=== PATIENT | female | born 1940 | race Caucasian/White ===

== ENCOUNTER → 2016-06-19 | Outpatient (CLI) | payer OTHER ==
[~2016-06-19] MED LIST: CITA40TA4 PO; CLOP1TAB15 PO; KETO10TA OPR; LISI40TA PO; PRAV20TA PO; PRED1SUS3 OPR
--- NOTE | 2016-06-19 10:35 | DIAGNOSTIC IMAGING REPORT ---
ULTRASOUND OF THE CAROTID ARTERIES CLINICAL HISTORY: I65.29 Carotid artery [id number] COMPARISON STUDY: None. TECHNIQUE: Real-time, grayscale, and color Doppler sonography of the carotid arteries was performed. Imaging reviewed in the transverse and longitudinal planes. NASCET criteria was utilized for stenosis calcification. FINDINGS: There is extensive atherosclerotic plaque present bilaterally. The peak systolic velocity within the right internal carotid artery is 220 cm/sec. The systolic velocity ratio of right internal to common carotid artery is 4.4. The peak systolic velocity within the left internal carotid artery is 550 cm/sec. The systolic velocity ratio left internal to common carotid artery is 7.8. Antegrade flow is seen in the vertebral arteries. The external carotid arteries are patent. Blood pressure in the right arm measured 145 mm/Hg. Blood pressure in the left arm measured 135 mm/Hg. IMPRESSION: High grade (greater than 70%) stenosis of both internal carotid arteries Electronically signed by: Samy Meyer M.D. 06/19/2016 10:34 AM
== END | disposition home or self-care (01) ==
LOC: C.ULTR 09:34
PROVIDERS: ATTEND Surgery
DX: I65.23 Occlusion and stenosis of bilateral carotid arteries (principal)

== ENCOUNTER → 2017-03-25 | Outpatient (CLI) | payer OTHER ==
[2017-03-25 14:53] LABS: BASO % 0.4 %; BASO ABS # 0.04 K/uL (0-0.2); COMPLETE YES; EOS % 2.3 %; HEMATOCRIT 38.4 % (37-47); IG% 0.3 %; LYMPH % 34.4 %; MEAN CELL VOLUME 93.9 fL (80-100); MEAN CORPUSCULAR HEMOGLOBIN 32.3 pg (25-34); MEAN CORPUSCULAR HGB CONC 34.4 g/dl (32-36); MEAN PLATELET VOLUME 9.8 fL (7.4-10.4); MONO % 8.4 %; NEUT % 54.2 %; PLATELET COUNT 319 K/uL (130-400); RED BLOOD COUNT 4.09 M/uL (4.2-5.4)
[2017-03-25 15:38] LABS: CHOLESTEROL/HDL RATIO 4.5; THYROID STIMULATING HORMONE 1.17 uIu/ml (0.300-4.500)
== END | disposition home or self-care (01) ==
LOC: C.LAB1850 13:39
PROVIDERS: ATTEND General Practice
DX: D51.0 Vitamin B12 deficiency anemia due to intrinsic factor deficiency (principal); E78.5 Hyperlipidemia, unspecified; E03.9 Hypothyroidism, unspecified

== ENCOUNTER → 2017-10-31 | Outpatient (CLI) | payer OTHER | END | disposition home or self-care (01) | LOC: C.MAMM 11:15 | PROVIDERS: ATTEND Internal Medicine | DX: Z00.00 Encounter for general adult medical examination without abnormal findings (principal); M85.88 Other specified disorders of bone density and structure, other site; M85.852 Other specified disorders of bone density and structure, left thigh; M85.851 Other specified disorders of bone density and structure, right thigh; Z78.0 Asymptomatic menopausal state ==

== ENCOUNTER 2023-03-23 18:18 | Observation (INO) ==
[2023-03-23] MEDS ORDERED: MECLIZINE HCL 25 MG TAB PO STA (18:55)
[2023-03-23] MEDS ORDERED: SODIUM CHLORIDE 0.9% 1,000 ML IV SCH (19:00)
--- NOTE | 2023-03-23 19:04 | Emergency Department Note ---
Impression & Plan Vertigo ED Provider Note NAME: ANUJ GUTIERRES AGE: 82 SEX: F : 1940 ARRIVES VIA: Ambulance INFORMANT: Patient, ED PROVIDER(S): Robbin Faith MD CHIEF COMPLAINT: dizziness HPI: This is a 82-year-old female with history of TIA, carotid artery stenosis presenting for dizziness per patient states that at 1 PM she began noticing extreme vertigo type sensation where she felt she was spinning. She states that this was the point where she was unable to sit up due to the symptoms. She has had nausea without vomiting. No weakness in any of her extremities. No trouble with swallowing or speech. She notes that she has not tried to walk at this time. ROS: See above HPI for pertinent positives & negatives. A total of 10 systems reviewed and were otherwise negative. PAST MEDICAL HISTORY: See Below PAST SURGICAL HISTORY: See Below FAMILY HISTORY: See Below SOCIAL HISTORY: See Below HOME MEDICATIONS: See Below ALLERGIES: See Below VITALS: See Below PHYSICAL EXAMINATION: General: resting comfortably in no acute distress Head: Normocephalic and atraumatic Eyes: Normal inspection, extraocular muscles intact, no conjunctival pallor Ear, nose, throat: Normal external exam Neck: Normal range of motion Respiratory: Patient is in no respiratory distress, lungs clear to auscultation bilaterally Cardiovascular: RRR without murmur appreciated GI: soft, nontender, no guarding or rebound Extremities: pulses intact with good cap refills, no LE pitting edema or calf tenderness Neuro: The patient awake and alert, appropriately conversive, cranial nerves II through XII intact, no dysmetria, symmetric facies Skin: Warm, dry, and intact MEDICAL DECISION MAKING: This is a 82-year-old female with history of TIA and carotid artery stenosis presenting for dizziness. Concern for central versus peripheral process patient's current vertigo type sensation. We will get CT of the head. We will get basic blood work and attempt symptomatic relief with meclizine for Patient's blood work is reviewed and is reassuring at this time, no significant abnormalities. Patient CT imaging of the head reveals no acute process as well. Patient evaluated states that she does feel better however upon Orthodox and her observe her gait she became extremely dizzy, was unable to get out of bed or walk. Patient will require admission for further TIA/stroke rule out as well as inability to walk. Triage Nursing notes reviewed. Prior medical records reviewed Vital Signs: reviewed and remarkable for no significant abnormalities Differential diagnosis: As above ER treatment provided: See below Diagnostics interpreted by me: ECG: None Cardiac Monitoring: An order was placed for continuous cardiac monitoring. The monitor shows a rate of 65 with sinus rhythm. Laboratory studies: As stated above and show below. Imaging studies: See below. Consultation(s): None Past Med/Surg History Medical History Acid reflux Carotid stenosis s/p right and left CEA 2020 and 2021 Depression Former smoker History of central retinal artery occlusion (2020) History of TIA (transient ischemic attack) (2016) Hyperlipidemia Hypertension Obstructive sleep apnea CPAP treatment Osteoarthritis of knee Osteopenia Surgical History H/O wisdom tooth extraction around the age of 13 History of cataract surgery B/L 2019 History of left-sided carotid endarterectomy (07/2021) History of right-sided carotid endarterectomy (04/2021) Hx of neck surgery 04/27/2021 Family History Mother Myocardial infarction Sister Breast cancer Father Prostate cancer Denies family history of Ovarian cancer Colorectal cancer Social History Smoking Status: Current every day smoker Tobacco Type: Cigarettes Age Started Using Tobacco: 19; Age Quit Using Tobacco: 80; packs per day: 0.25; Cigarettes Per Day: 5-6; Second Hand Exposure: No; Do You Dip or Chew Tobacco: No; Tobacco Cessation Education Requested by Patient: No Hx Alcohol Use: No Hx Substance Use: No Preferred Language: Serbian Communication Ability: Effective Visual Impairment: No Limitations Hearing Ability: Normal Rug Hooker Required: No Beliefs That Will Affect Care: None marital status: / Current Living Situation: Alone Current Living Situation Comment: [facility], [place]. current occupational status: retired current occupation: used to work as a receptionist secretary Other Information That Helps Us Care for You: No Feels Safe at Home: Yes Safety Concerns: Feels Safe At This Time Childhood Exposure to Second-Hand Smoke: No Diet: regular caffeine: Yes Dental Care, Regularly: No Physical Activity Frequency: 3-4 Times per Week Seatbelt Use: always Sunscreen Use: No Assistive Devices: Cane, Denture - Upper, Denture - Lower, Glasses, Hospital Bed and Walker Allergies Allergies Allergy/AdvReac Type Severity Reaction Status Date / Time pollen extracts Allergy Unknown . Verified 03/23/23 19:11 Home Meds Home Medications Medication Instructions Recorded Confirmed fluticasone propionate 50 2 sprays intranasal DAILY PRN 03/06/19 03/23/23 mcg/actuation nasal Allergic Symptoms spray,suspension calcium carbonate 600 mg-vitamin 1 tab PO DAILY 04/19/19 03/23/23 D3 20 mcg (800 unit) chewable tablet (Caltrate 600 plus D) diphenhydramine 25 1 tab PO HS 03/08/21 03/23/23 mg-acetaminophen 500 mg tablet (Tylenol PM Extra Strength) cetirizine 10 mg tablet (Zyrtec) 10 mg PO DAILY PRN Allergic 02/27/22 03/23/23 Symptoms cholecalciferol (vitamin D3) 25 25 mcg PO DAILY 08/16/22 03/23/23 mcg (1,000 unit) capsule eflornithine 13.9 % topical cream 1 applic topical BID PRN Skin 03/23/23 03/23/23 (Vaniqa) Irritation Previous Rx's Medication Instructions Recorded citalopram 40 mg tablet 40 mg PO DAILY #90 tabs 06/22/22 amlodipine 10 mg tablet 10 mg PO DAILY #90 tabs 07/02/22 clopidogrel 75 mg tablet 75 mg PO DAILY #90 tabs 07/02/22 lisinopril 40 mg tablet 80 mg PO DAILY #180 tabs 07/02/22 pantoprazole 40 mg tablet,delayed 40 mg PO DAILY #90 tabs 09/07/22 release (Protonix) pravastatin 10 mg tablet 10 mg PO DAILY #90 tabs 09/07/22 Results & Data (ED) Vital Signs Vital Signs - 24 hr 03/23/23 18:25 03/23/23 18:25 03/23/23 18:25 Temperature 36.6 C Temperature Source Oral Pulse Rate 72 Pulse Rate [Bilateral] Respiratory Rate 18 18 Respiratory Depth Normal Blood Pressure 155/90 H Blood Pressure Mean 111 Pulse Oximetry 95 95 100 Oxygen Delivery Method Room Air Room Air Sepsis Recent Fever Within 48 Hours No Sepsis New/Unexplained Change in Mental Status N/A Sepsis Action Taken by Nursing No Action Required 03/23/23 18:31 03/23/23 18:55 03/23/23 20:10 Temperature Temperature Source Pulse Rate 69 Pulse Rate [Bilateral] 67 Respiratory Rate 18 Respiratory Depth Blood Pressure Blood Pressure Mean Pulse Oximetry 93 98 Oxygen Delivery Method Room Air Room Air Sepsis Recent Fever Within 48 Hours Sepsis New/Unexplained Change in Mental Status Sepsis Action Taken by Nursing Laboratory Data 03/23/23 18:30 03/23/23 18:30 Lab Results 03/23/23 03/23/23 Range/Units 18:30 18:30 WBC 10.63 (4.8-10.8) K/ul RBC 4.41 (4.20-5.40) M/uL Hgb 13.9 (12.0-16.0) g/dl Hct 40.5 (37.0-47.0) % MCV 91.8 (80.0-100.0) fL MCH 31.5 (25.0-34.0) pg MCHC 34.3 (32.0-36.0) g/dL RDW Std Deviation 44.1 (36.4-46.3) fL RDW Coeff of Viviana 13.0 (11.5-14.5) % Plt Count 325 (130-400) K/uL MPV 10.2 (9.4-12.4) fL Immature Gran % (Auto) 0.3 % Neut % (Auto) 64.1 % Lymph % (Auto) 27.7 % [place] % (Auto) 6.4 % Eos % (Auto) 0.9 % Baso % (Auto) 0.6 % Neut # (Auto) 6.82 H (1.40-6.50) K/uL Lymph # (Auto) 2.94 (1.20-3.40) K/uL [place] # (Auto) 0.68 H (0.11-0.59) K/uL Eos # (Auto) 0.10 (0.00-0.50) K/uL Baso # (Auto) 0.06 (0.00-0.20) K/uL Immature Gran # (Auto) 0.03 (0.01-0.20) K/uL Sodium 139 (136-145) mmol/L Potassium 3.9 (3.5-5.1) mmol/L Chloride 106 (98-107) mmol/L Carbon Dioxide 24 (21-32) mmol/L Anion Gap 9 (3-11) BUN 17 (6-23) mg/dl Creatinine 0.73 (0.6-1.2) mg/dl Est Cr Clr Drug Dosing 57.4 ml/min Est GFR ( Amer) 89.5 ml/min Est GFR (Non-Af Amer) 77.2 ml/min BUN/Creatinine Ratio 23.3 H (10-20) Glucose 109 H (70-99(Fasting)) mg/dl Calcium 9.6 (8.6-10.3) mg/dl Total Bilirubin 0.4 (0.2-1.0) mg/dl AST 14 (13-39) U/L ALT 11 (7-52) U/L Alkaline Phosphatase 74 (34-104) U/L Troponin I High Sens 4.2 (0-14) pg/ml Total Protein 7.3 (6.0-8.3) gm/dl Albumin 4.3 (3.4-5.0) gm/dl Globulin 3.0 (2.5-4.0) gm/dl Albumin/Globulin Ratio 1.4 (0.9-2) Administered Medications Discontinued Medications Sodium Chloride (Nss) 1,000 mls @ 999 mls/hr IV .Q1H1M MARLA Stop: 03/23/23 20:00 Last Infusion: 03/23/23 20:48 Dose: 0 mls/hr Documented By: Admin: 03/23/23 19:36 Dose: 999 mls/hr Documented By: DOREEN Meclizine HCl (Meclizine Hcl 25 Mg Tab) 25 mg PO NOW STA Stop: 03/23/23 18:56 Last Admin: 03/23/23 19:36 Dose: 25 mg Documented By: DOEREN Ondansetron HCl (Ondansetron Inj 2 Mg/Ml 2 Ml Vial) 4 mg IV NOW STA Stop: 03/23/23 19:26 Last Admin: 03/23/23 19:36 Dose: 4 mg Documented By: DOREEN Imaging Data Radiologist's Impression: Head CT 03/23/23 18:55 CT SCAN OF THE BRAIN WITHOUT IV CONTRAST CLINICAL HISTORY: Vertigo. COMPARISON STUDY: CT of the brain dated 11/30/2020. TECHNIQUE: Unenhanced axial CT scan of the brain is performed from the vertex to the skull base. A dose lowering technique was utilized adhering to the principles of ALARA. CT DOSE: 625.8 mGy.cm FINDINGS: Brain parenchyma: There is age-related involutional change noting mild subcortical and periventricular microangiopathic disease. There is no hemorrhage, mass effect, or evidence of acute territorial ischemia by CT criteria. Allen-white matter differentiation is preserved. No extra-axial fluid c ollection is seen. Ventricles, sulci, cisterns: Prominent secondary to involutional change. Intracranial vasculature: There is atherosclerotic calcification of the cavernous carotid and vertebral artery. Calvarium: Unremarkable. Sinuses and mastoids: The visualized paranasal sinuses are clear. The mastoid air cells are well pneumatized. Orbits: The bony orbits are grossly intact. There are bilateral ocular lens implants. IMPRESSION: There is no hemorrhage, mass effect, or evidence of acute territorial ischemia by CT criteria. ACT 112: Negative or not required by law. Electronically signed by: Joe Faulkner M.D. 03/23/2023 7:29 PM Discharge Plan Visit Data Chief Complaint: Weakness ED Provider: Robbin Faith Discharge Problem: Vertigo Patient Disposition: Admitted As Inpatient Discharge Instructions Interventions: ED Discharge Assessment Last Done: 03/23/23 22:30
[2023-03-23 19:05] LABS: Hematocrit (blood only) 40.5 % (37.0-47.0); Hemoglobin 13.9 g/dl (12.0-16.0); Mean Corpuscular Hemoglobin 31.5 pg (25.0-34.0); Mean Corpuscular Hgb Conc 34.3 g/dL (32.0-36.0); Mean Corpuscular Volume 91.8 fL (80.0-100.0); Mean Platelet Volume 10.2 fL (9.4-12.4); Neutrophils % (auto) 64.1 %; Platelet Count 325 K/uL (130-400); RDW Standard Deviation 44.1 fL (36.4-46.3); Red Blood Count 4.41 M/uL (4.20-5.40); White Blood Count 10.63 K/ul (4.8-10.8)
[2023-03-23 19:06] LABS: Basophils # (auto) 0.06 K/uL (0.00-0.20); Basophils % (auto) 0.6 %; Eosinophils % (auto) 0.9 %; Immature Granulocytes # (auto) 0.03 K/uL (0.01-0.20); Immature Granulocytes % (auto) 0.3 %; Lymphocytes # (auto) 2.94 K/uL (1.20-3.40); Lymphocytes % (auto) 27.7 %; Monocytes # (auto) 0.68 K/uL (0.11-0.59); Monocytes % (auto) 6.4 %; Neutrophils # (auto) 6.82 K/uL (1.40-6.50)
[2023-03-23 19:16] LABS: Albumin Globulin Ratio 1.4 (0.9-2); Albumin Level 4.3 gm/dl (3.4-5.0); BUN Creatinine Ratio 23.3 (10-20); Bilirubin,Total 0.4 mg/dl (0.2-1.0); Calcium 9.6 mg/dl (8.6-10.3); Creatinine Clr Calc Pharmacy 57.4 ml/min; Est GFR (African American) 89.5 ml/min; Est GFR (Non-African American) 77.2 ml/min; Potassium 3.9 mmol/L (3.5-5.1); Total Protein 7.3 gm/dl (6.0-8.3)
[2023-03-23 19:22] LABS: Troponin I High Sensitivity 4.2 pg/ml (0-14)
[2023-03-23] MEDS ORDERED: ONDANSETRON INJ 2 MG/ML 2 ML VIAL IV STA (19:25)
--- NOTE | 2023-03-23 19:30 | CT Scan Report ---
CT SCAN OF THE BRAIN WITHOUT IV CONTRAST CLINICAL HISTORY: Vertigo. COMPARISON STUDY: CT of the brain dated 11/30/2020. TECHNIQUE: Unenhanced axial CT scan of the brain is performed from the vertex to the skull base. A do se lowering technique was utilized adhering to the principles of ALARA. CT DOSE: 625.8 mGy.cm FINDINGS: Brain parenchyma: There is age-related involutional change noting mild subcortical and periventricula r microangiopathic disease. There is no hemorrhage, mass effect, or evidence of acute territorial isc hemia by CT criteria. Allen-white matter differentiation is preserved. No extra-axial fluid collection is seen. Ventricles, sulci, cisterns: Prominent secondary to involutional change. Intracranial vasculature: There is atherosclerotic calcification of the cavernous carotid and vertebr al artery. Calvarium: Unremarkable. Sinuses and mastoids: The visualized paranasal sinuses are clear. The mastoid air cells are well pneu matized. Orbits: The bony orbits are grossly intact. There are bilateral ocular lens implants. IMPRESSION: There is no hemorrhage, mass effect, or evidence of acute territorial ischemia by CT nicole robison. ACT 112: Negative or not required by law. Electronically signed by: Joe Faulkner M.D. 03/23/2023 7:29 PM
--- NOTE | 2023-03-23 21:15 | History & Physical Report ---
Date of Service March 23, 2023 Assessment & Plan (1) Vertigo: Plan: 82yo female presenting with sudden onset of vertigo that began today around 13:00. Patient with no additional neurologic complaints. HINTS test suggestive of peripheral source rather than central vertigo. Symptoms somewhat improved after administration of Meclizine in the ER. Patient still unable to get out of bed. -Observation to medical -Meclizine 25mg po TID scheduled -Zofran as needed for nausea -PT/OT evaluation appreciated -Maintain fall precautions -Continue home Plavix for history of prior TIA (2) Obstructive sleep apnea: Plan: Chronic. Patient reports compliance with her nocturnal CPAP -Continue CPAP 7cm H2O qHS (3) Hypertension: Plan: Mild hypertension -Continue Amlodipine 10mg po daily -Continue Lisinopril 80mg po daily (4) Acid reflux: Plan: Chronic. Stable -Continue Protonix 40mg po daily (5) Hyperlipidemia: Plan: Chronic. Stable -Continue Pravastatin 10mg po daily History of Present Illness Chief Complaint: dizziness Primary Care Provider: Edilma Phillips MD Nadia Rico is a pleasant 82yo female with history of prior TIA, HTN, HLP and JERMAINE on CPAP presenting with dizziness. Patient was in his usual state of health until this afternoon around 13:00 when she developed abrupt onset of vertigo and nausea. She report that she was feeling the room spin around her, nausea, unable to keep her eyes open. She was having difficulty ambulating. Her symptoms persisted for 3-4 hours before she called her family. She denies fever, chills, cough, SOB, abdominal pain, vomiting, diarrhea. No syncope, focal numbness/tingling or weakness. No additional complaints at this time. In the ER she is afebrile, mildly hypertensive, otherwise HD stable. Patient reports that her symptoms have improved with Meclizine. ER Course: Meclizine Zofran NSS Allergies Allergy/AdvReac Type Severity Reaction Status Date / Time pollen extracts Allergy Unknown . Verified 03/23/23 19:11 Home Medications Medication Instructions Recorded Confirmed Type fluticasone propionate 50 2 sprays intranasal DAILY PRN 03/06/19 03/23/23 History mcg/actuation nasal Allergic Symptoms spray,suspension calcium carbonate 600 mg-vitamin 1 tab PO DAILY 04/19/19 03/23/23 History D3 20 mcg (800 unit) chewable tablet (Caltrate 600 plus D) diphenhydramine 25 1 tab PO HS 03/08/21 03/23/23 History mg-acetaminophen 500 mg tablet (Tylenol PM Extra Strength) CPAP Machine See Rx Instructions .Route 04/20/21 03/06/23 Rx .COMPLEX #1 ea cetirizine 10 mg tablet (Zyrtec) 10 mg PO DAILY PRN Allergic 02/27/22 03/23/23 History Symptoms citalopram 40 mg tablet 40 mg PO DAILY #90 tabs 06/22/22 03/23/23 Rx amlodipine 10 mg tablet 10 mg PO DAILY #90 tabs 07/02/22 03/23/23 Rx clopidogrel 75 mg tablet 75 mg PO DAILY #90 tabs 07/02/22 03/23/23 Rx lisinopril 40 mg tablet 80 mg PO DAILY #180 tabs 07/02/22 03/23/23 Rx cholecalciferol (vitamin D3) 25 25 mcg PO DAILY 08/16/22 03/23/23 History mcg (1,000 unit) capsule pantoprazole 40 mg tablet,delayed 40 mg PO DAILY #90 tabs 09/07/22 03/23/23 Rx release (Protonix) pravastatin 10 mg tablet 10 mg PO DAILY #90 tabs 09/07/22 03/23/23 Rx eflornithine 13.9 % topical cream 1 applic topical BID PRN Skin 03/23/23 03/23/23 History (Vaniqa) Irritation Past Med/Surg History Medical History Acid reflux Carotid stenosis s/p right and left CEA 2020 and 2021 Depression Former smoker History of central retinal artery occlusion (2020) History of TIA (transient ischemic attack) (2016) Hyperlipidemia Hypertension Obstructive sleep apnea CPAP treatment Osteoarthritis of knee Osteopenia Surgical History H/O wisdom tooth extraction around the age of 13 History of cataract surgery B/L 2019 History of left-sided carotid endarterectomy (07/2021) History of right-sided carotid endarterectomy (04/2021) Hx of neck surgery 04/27/2021 Family History Mother Myocardial infarction Sister Breast cancer Father Prostate cancer Denies family history of Ovarian cancer Colorectal cancer Social History Smoking Status: Current every day smoker Tobacco Type: Cigarettes Age Started Using Tobacco: 19; Age Quit Using Tobacco: 80; packs per day: 0.25; Second Hand Exposure: Yes (her used to smoke ); Do You Dip or Chew Tobacco: No; Hx Alcohol Use: No Hx Substance Use: No Preferred Language: Montenegrin Visual Impairment: No Limitations Hearing Ability: Normal marital status: / Current Living Situation: Alone current occupational status: retired current occupation: used to work as a litigation legal secretary Feels Safe at Home: Yes Childhood Exposure to Second-Hand Smoke: No Diet: regular caffeine: Yes Dental Care, Regularly: No Physical Activity Frequency: 3-4 Times per Week Seatbelt Use: always Sunscreen Use: No Assistive Devices: Cane, Denture - Upper, Denture - Lower and Glasses Review of Systems Review of Systems: All systems reviewed & are unremarkable except as noted in HPI & below Physical Exam Physical Exam: General: patient resting comfortably, NAD, non-toxic in appearance, AA&O x 4 Skin: warm, dry, intact, no rashes or lesions HEENT: NC/AT, PERRL, EOMI, anicteric sclera, conjunctiva without injection, external ear normal to inspection and nontender, nares patent, moist mucus membranes, dentition intact, no oropharyngeal lesions, neck supple, trachea midline, no LAD, no thyromegaly, no JVD Heart: +S1/S2, regular, no m/r/g Lungs: equal air entry bilaterally, no rales/rhonchi/wheezes Abd: +BS, soft, NT/ND, no masses/organomegaly/ascites Ext: warm, 2+ pulses in UE/LE bilaterally, no clubbing/cyanosis or edema Neuro: nonfocal, patient AA&O x 4, speech intact, no facial droop, moving all extremities on command with equal strength 5/5 HINTS exam normal, mild horizontal nystagmus Results & Data Results & Data Vital Signs (Past 12 Hours) Vital Signs Temp Pulse Resp BP Pulse Ox O2 Del Method 03/23/23 18:55 93 Room Air 03/23/23 18:31 69 03/23/23 18:25 18 100 03/23/23 18:25 95 Room Air 03/23/23 18:25 36.6 C 72 18 155/90 H 95 Room Air Laboratory Results Laboratory Results WBC 10.63 K/ul (4.8-10.8) 03/23/23 18:30 RBC 4.41 M/uL (4.20-5.40) 03/23/23 18:30 Hgb 13.9 g/dl (12.0-16.0) 03/23/23 18:30 Hct 40.5 % (37.0-47.0) 03/23/23 18:30 MCV 91.8 fL (80.0-100.0) 03/23/23 18:30 MCH 31.5 pg (25.0-34.0) 03/23/23 18:30 MCHC 34.3 g/dL (32.0-36.0) 03/23/23 18:30 RDW Std Deviation 44.1 fL (36.4-46.3) 03/23/23 18:30 RDW Coeff of Viviana 13.0 % (11.5-14.5) 03/23/23 18:30 Plt Count 325 K/uL (130-400) 03/23/23 18:30 MPV 10.2 fL (9.4-12.4) 03/23/23 18:30 Immature Gran % (Auto) 0.3 % 03/23/23 18:30 Neut % (Auto) 64.1 % 03/23/23 18:30 Lymph % (Auto) 27.7 % 03/23/23 18:30 [place] % (Auto) 6.4 % 03/23/23 18:30 Eos % (Auto) 0.9 % 03/23/23 18:30 Baso % (Auto) 0.6 % 03/23/23 18:30 Neut # (Auto) 6.82 K/uL (1.40-6.50) H 03/23/23 18:30 Lymph # (Auto) 2.94 K/uL (1.20-3.40) 03/23/23 18:30 [place] # (Auto) 0.68 K/uL (0.11-0.59) H 03/23/23 18:30 Eos # (Auto) 0.10 K/uL (0.00-0.50) 03/23/23 18:30 Baso # (Auto) 0.06 K/uL (0.00-0.20) 03/23/23 18:30 Immature Gran # (Auto) 0.03 K/uL (0.01-0.20) 03/23/23 18:30 Sodium 139 mmol/L (136-145) 03/23/23 18:30 Potassium 3.9 mmol/L (3.5-5.1) 03/23/23 18:30 Chloride 106 mmol/L (98-107) 03/23/23 18:30 Carbon Dioxide 24 mmol/L (21-32) 03/23/23 18:30 Anion Gap 9 (3-11) 03/23/23 18:30 BUN 17 mg/dl (6-23) 03/23/23 18:30 Creatinine 0.73 mg/dl (0.6-1.2) 03/23/23 18:30 Est Cr Clr Drug Dosing 57.4 ml/min 03/23/23 18:30 Est GFR ( Amer) 89.5 ml/min 03/23/23 18:30 Est GFR (Non-Af Amer) 77.2 ml/min 03/23/23 18:30 BUN/Creatinine Ratio 23.3 (10-20) H 03/23/23 18:30 Glucose 109 mg/dl (70-99(Fasting)) H 03/23/23 18:30 Calcium 9.6 mg/dl (8.6-10.3) 03/23/23 18:30 Total Bilirubin 0.4 mg/dl (0.2-1.0) 03/23/23 18:30 AST 14 U/L (13-39) 03/23/23 18:30 ALT 11 U/L (7-52) 03/23/23 18:30 Alkaline Phosphatase 74 U/L (34-104) 03/23/23 18:30 Troponin I High Sens 4.2 pg/ml (0-14) 03/23/23 18:30 Total Protein 7.3 gm/dl (6.0-8.3) 03/23/23 18:30 Albumin 4.3 gm/dl (3.4-5.0) 03/23/23 18:30 Globulin 3.0 gm/dl (2.5-4.0) 03/23/23 18:30 Albumin/Globulin Ratio 1.4 (0.9-2) 03/23/23 18:[address] 03/23/23 18:55 CT SCAN OF THE BRAIN WITHOUT IV CONTRAST CLINICAL HISTORY: Vertigo. COMPARISON STUDY: CT of the brain dated 11/30/2020. TECHNIQUE: Unenhanced axial CT scan of the brain is performed from the vertex to the skull base. A dose lowering technique was utilized adhering to the principles of ALARA. CT DOSE: 625.8 mGy.cm FINDINGS: Brain parenchyma: There is age-related involutional change noting mild subcortical and periventricular microangiopathic disease. There is no hemorrhage, mass effect, or evidence of acute territorial ischemia by CT criteria. Allen-white matter differentiation is preserved. No extra-axial fluid collection is seen. Ventricles, sulci, cisterns: Prominent secondary to involutional change. Intracranial vasculature: There is atherosclerotic calcification of the cavernous carotid and vertebral artery. Calvarium: Unremarkable. Sinuses and mastoids: The visualized paranasal sinuses are clear. The mastoid air cells are well pneumatized. Orbits: The bony orbits are grossly intact. There are bilateral ocular lens implants. IMPRESSION: There is no hemorrhage, mass effect, or evidence of acute territorial ischemia by CT criteria. ACT 112: Negative or not required by law. Electronically signed by: Joe Faulkner M.D. 03/23/2023 7:29 PM ECG Additional Comments: EKG with NSR at 66bpm, normal axis, XU=519, QRS=76, ZQe=313, no acute ischemic changes Code Status & VTE Plan VTE Prophylaxis Plan VTE Prophylaxis will be ordered: No Reason for no VTE drug order: Treatment not indicated PG Care Time/CCT Total # of Minutes Spent Total Time Spent with Patient: Total time spent is greater than 50% in coordination of care (as documented) at patient's floor/unit and/or counseling patient: Coding Level of Care Code 66800 INT INP/OBS CARE 2/55MIN Diagnoses Vertigo R42 Obstructive sleep apnea G47.33 Hypertension I10 Acid reflux K21.9 Hyperlipidemia E78.5
[2023-03-23] MEDS ORDERED: ACETAMINOPHEN 325 MG TAB PO PRN (22:59)
[2023-03-23] MEDS ORDERED: ONDANSETRON INJ 2 MG/ML 2 ML VIAL IV PRN (22:59)
--- NOTE | 2023-03-24 08:10 | Hospitalist Progress Note ---
Date of Service March 24, 2023 Assessment & Plan (1) Vertigo: Plan: 82yo female presenting with sudden onset of vertigo that began today around 13:00. Patient with no additional neurologic complaints. HINTS test suggestive of peripheral source rather than central vertigo. Symptoms somewhat improved after administration of Meclizine in the ER. Patient still unable to get out of bed. -Observation to medical -Meclizine 25mg po TID scheduled -Zofran as needed for nausea -PT/OT evaluation appreciated -Maintain fall precautions -Continue home Plavix for history of prior TIA (2) Obstructive sleep apnea: Plan: Chronic. Patient reports compliance with her nocturnal CPAP -Continue CPAP 7cm H2O qHS (3) Hypertension: Plan: Mild hypertension -Continue Amlodipine 10mg po daily -Continue Lisinopril 80mg po daily (4) Acid reflux: Plan: Chronic. Stable -Continue Protonix 40mg po daily (5) Hyperlipidemia: Plan: Chronic. Stable -Continue Pravastatin 10mg po daily Admission and Anticipated Discharge Date Admission Date: March 23, 2023 Results & Data Results & Data Vital Signs (Past 12 Hours) Vital Signs Temp Pulse Pulse Pulse Resp BP Pulse Ox 03/24/23 07:19 36.8 C 61 18 129/61 93 03/24/23 02:15 57 L 19 92 03/24/23 00:48 62 22 94 03/23/23 22:45 03/23/23 22:45 03/23/23 22:45 36.5 C 65 14 145/63 H 97 03/23/23 22:10 72 21 154/63 H 97 03/23/23 20:10 67 18 98 O2 Del Method O2 Flow Rate FiO2 03/24/23 07:19 CPAP 03/24/23 02:15 0 21 03/24/23 00:48 0 21 03/23/23 22:45 Nasal Cannula, CPAP 2 03/23/23 22:45 Nasal Cannula, CPAP 2 03/23/23 22:45 Nasal Cannula, CPAP 2 03/23/23 22:10 Room Air 03/23/23 20:10 Room Air Laboratory Results 03/23/23 03/23/23 Range/Units 18:30 18:30 WBC 10.63 (4.8-10.8) K/ul RBC 4.41 (4.20-5.40) M/uL Hgb 13.9 (12.0-16.0) g/dl Hct 40.5 (37.0-47.0) % MCV 91.8 (80.0-100.0) fL MCH 31.5 (25.0-34.0) pg MCHC 34.3 (32.0-36.0) g/dL RDW Std Deviation 44.1 (36.4-46.3) fL RDW Coeff of Viviana 13.0 (11.5-14.5) % Plt Count 325 (130-400) K/uL MPV 10.2 (9.4-12.4) fL Immature Gran % (Auto) 0.3 % Neut % (Auto) 64.1 % Lymph % (Auto) 27.7 % [place] % (Auto) 6.4 % Eos % (Auto) 0.9 % Baso % (Auto) 0.6 % Neut # (Auto) 6.82 H (1.40-6.50) K/uL Lymph # (Auto) 2.94 (1.20-3.40) K/uL [place] # (Auto) 0.68 H (0.11-0.59) K/uL Eos # (Auto) 0.10 (0.00-0.50) K/uL Baso # (Auto) 0.06 (0.00-0.20) K/uL Immature Gran # (Auto) 0.03 (0.01-0.20) K/uL Sodium 139 (136-145) mmol/L Potassium 3.9 (3.5-5.1) mmol/L Chloride 106 (98-107) mmol/L Carbon Dioxide 24 (21-32) mmol/L Anion Gap 9 (3-11) BUN 17 (6-23) mg/dl Creatinine 0.73 (0.6-1.2) mg/dl Est Cr Clr Drug Dosing 57.4 ml/min Est GFR ( Amer) 89.5 ml/min Est GFR (Non-Af Amer) 77.2 ml/min BUN/Creatinine Ratio 23.3 H (10-20) Glucose 109 H (70-99(Fasting)) mg/dl Calcium 9.6 (8.6-10.3) mg/dl Total Bilirubin 0.4 (0.2-1.0) mg/dl AST 14 (13-39) U/L ALT 11 (7-52) U/L Alkaline Phosphatase 74 (34-104) U/L Troponin I High Sens 4.2 (0-14) pg/ml Total Protein 7.3 (6.0-8.3) gm/dl Albumin 4.3 (3.4-5.0) gm/dl Globulin 3.0 (2.5-4.0) gm/dl Albumin/Globulin Ratio 1.4 (0.9-2) PG Care Time/CCT Total # of Minutes Spent Total Time Spent with Patient: Total time spent is greater than 50% in coordination of care (as documented) at patient's floor/unit and/or counseling patient: Coding Diagnoses Vertigo R42 Obstructive sleep apnea G47.33 Hypertension I10 Acid reflux K21.9 Hyperlipidemia E78.5
[2023-03-24 08:59] LABS: Basophils # (auto) 0.05 K/uL (0.00-0.20); Basophils % (auto) 0.5 %; Eosinophils # (auto) 0.18 K/uL (0.00-0.50); Hematocrit (blood only) 36.1 % (37.0-47.0); Hemoglobin 12.1 g/dl (12.0-16.0); Immature Granulocytes # (auto) 0.04 K/uL (0.01-0.20); Immature Granulocytes % (auto) 0.4 %; Lymphocytes # (auto) 2.72 K/uL (1.20-3.40); Lymphocytes % (auto) 29.7 %; Mean Corpuscular Hemoglobin 31.7 pg (25.0-34.0); Mean Corpuscular Hgb Conc 33.5 g/dL (32.0-36.0); Mean Corpuscular Volume 94.5 fL (80.0-100.0); Mean Platelet Volume 10.3 fL (9.4-12.4); Monocytes # (auto) 0.56 K/uL (0.11-0.59); Monocytes % (auto) 6.1 %; Neutrophils % (auto) 61.3 %; Platelet Count 282 K/uL (130-400); RDW Coefficient of Variation 13.2 % (11.5-14.5); RDW Standard Deviation 45.6 fL (36.4-46.3); Red Blood Count 3.82 M/uL (4.20-5.40); White Blood Count 9.15 K/ul (4.8-10.8)
[2023-03-24] MEDS ORDERED: PANTOprazole 40 MG TAB PO SCH (09:00)
[2023-03-24] MEDS ORDERED: NICOTINE 7 MG/24 HR TDSY TD SCH (09:00)
[2023-03-24] MEDS ORDERED: CITALOPRAM 40 MG TAB PO SCH (09:00)
[2023-03-24] MEDS ORDERED: amLODIPine BESYLATE 5 MG TAB PO SCH (09:00)
[2023-03-24] MEDS ORDERED: MECLIZINE HCL 25 MG TAB PO SCH (09:00)
[2023-03-24] MEDS ORDERED: lisinopril 40 MG TAB PO SCH (09:00)
[2023-03-24] MEDS ORDERED: CLOPIDOGREL BISULFATE 75 MG TAB PO SCH (09:00)
[2023-03-24 09:17] LABS: BUN Creatinine Ratio 24.4 (10-20); Calcium 8.5 mg/dl (8.6-10.3); Creatinine Clr Calc Pharmacy 51.3 ml/min; Est GFR (African American) 77.8 ml/min; Est GFR (Non-African American) 67.1 ml/min
--- NOTE | 2023-03-24 10:18 | Discharge Summary ---
Date of Service March 24, 2023 Admission HPI Per Admitting Provider Nadia Rico is a pleasant 82yo female with history of prior TIA, HTN, HLP and JERMAINE on CPAP presenting with dizziness. Patient was in his usual state of health until this afternoon around 13:00 when she developed abrupt onset of vertigo and nausea. She report that she was feeling the room spin around her, nausea, unable to keep her eyes open. She was having difficulty ambulating. Her symptoms persisted for 3-4 hours before she called her family. She denies fever, chills, cough, SOB, abdominal pain, vomiting, diarrhea. No syncope, focal numbness/tingling or weakness. No additional complaints at this time. In the ER she is afebrile, mildly hypertensive, otherwise HD stable. Patient reports that her symptoms have improved with Meclizine. ER Course: Meclizine Zofran NSS Admission Exam Per Admitting Provider General: patient resting comfortably, NAD, non-toxic in appearance, AA&O x 4 Skin: warm, dry, intact, no rashes or lesions HEENT: NC/AT, PERRL, EOMI, anicteric sclera, conjunctiva without injection, external ear normal to inspection and nontender, nares patent, moist mucus membranes, dentition intact, no oropharyngeal lesions, neck supple, trachea midline, no LAD, no thyromegaly, no JVD Heart: +S1/S2, regular, no m/r/g Lungs: equal air entry bilaterally, no rales/rhonchi/wheezes Abd: +BS, soft, NT/ND, no masses/organomegaly/ascites Ext: warm, 2+ pulses in UE/LE bilaterally, no clubbing/cyanosis or edema Neuro: nonfocal, patient AA&O x 4, speech intact, no facial droop, moving all extremities on command with equal strength 5/5 HINTS exam normal, mild horizontal nystagmus Principal Diagnosis Vertigo Discharge Exam General: WD/WN female ambulating the halls, NAD HEENT: head normocephalic, atraumatic, b/l CEA incision noted, trachea midline, ?horizontal nystagmus Resp; CTA, no w/c/r, on room air CV: RRR, no significant m/r/g, no pitting edema/calf tenderness GI: +BS, soft/NT : no hernandez MSK/Neuro: nonfocal, no slurred speech/facial droop, pupils equal/reactive, follows commands Psych: AOx3, cooperative and pleasant Discharge Data Allergies Allergy/AdvReac Type Severity Reaction Status Date / Time pollen extracts Allergy Unknown . Verified 03/23/23 19:11 Consultations 03/23/23 21:33 ED Decision to Admit Stat Ordered Studies Head CT 03/23/23 18:55 CT SCAN OF THE BRAIN WITHOUT IV CONTRAST CLINICAL HISTORY: Vertigo. COMPARISON STUDY: CT of the brain dated 11/30/2020. TECHNIQUE: Unenhanced axial CT scan of the brain is performed from the vertex to the skull base. A dose lowering technique was utilized adhering to the principles of ALARA. CT DOSE: 625.8 mGy.cm FINDINGS: Brain parenchyma: There is age-related involutional change noting mild subcortical and periventricular microangiopathic disease. There is no hemorrhage, mass effect, or evidence of acute territorial ischemia by CT criteria. Allen-white matter differentiation is preserved. No extra-axial fluid collection is seen. Ventricles, sulci, cisterns: Prominent secondary to involutional change. Intracranial vasculature: There is atherosclerotic calcification of the cavernous carotid and vertebral artery. Calvarium: Unremarkable. Sinuses and mastoids: The visualized paranasal sinuses are clear. The mastoid air cells are well pneumatized. Orbits: The bony orbits are grossly intact. There are bilateral ocular lens implants. IMPRESSION: There is no hemorrhage, mass effect, or evidence of acute territorial ischemia by CT criteria. ACT 112: Negative or not required by law. Electronically signed by: Joe Faulkner M.D. 03/23/2023 7:29 PM Hospital Course (1) Vertigo: 82yo female presenting with sudden onset of vertigo that began today around 13:00. Patient with no additional neurologic complaints. HINTS test suggestive of peripheral source rather than central vertigo. Symptoms somewhat improved after administration of Meclizine in the ER but was unable to get out of bed int he ER Admitted for observation on medical. EKG w/o acute abn, trop negative Continued home plavix given hx TIA (but also noting hx b/l CEA, prior on ASA/plavix, follows w/ ann) Placed on meclizine 25mg TID scheduled and consulted with therapy and patient with resolution in symptoms. Patient wanting to go home, feeling well, no further sx Discussed continued meclizine for 1-2 days at home then can transition to as needed No worrisome sx for stroke on examination, no focal deficit on exam Updated son on phone, rx for outpt PT/OT as going to be arranged for her knee OA by PCP provided. DC home w/ son this afternoon (2) Obstructive sleep apnea: Chronic. Patient reports compliance with her nocturnal CPAP, continued while inpatient (3) Hypertension: Mild hypertension on admission, continued amlodipine/lisinopril BP 129/61 prior to dc (4) Acid reflux: Chronic. Stable Continued PPI daily (5) Hyperlipidemia: Chronic. Stable Continued Pravastatin 10mg po daily Plan discharged home on meclizine Total Time Total Time Spent Total Time Spent (In Minutes): 35 Discharge Plan Discharge Items Patient Disposition: Home - Self-Care Reason For Visit: VERTIGO, AMBULATORY DYSFUNCTION Discharge Diagnosis: Vertigo Goals: You have been hospitalized for an acute medical problem. During your stay at [facility], we have made an effort to correct the problem that brought you to the hospital while keeping you as comfortable as possible. Medications were used to bring your condition under control and your discharge instructions will include directions for any medications you should take after leaving the hospital. Please make sure you see your Primary Care Provider as part of your follow up plan. Activity: As commented below Non-emergency contact: Primary Care Provider Call non-emergency contact if: you have any medication questions and your symptoms worsen Follow-up/Referrals: Edilma Phillips MD [Primary Care Provider] - Diet: Heart Healthy Addtl Attending Provider Instructions: You have been hospitalized for dizziness and imaging of the head was negative, and you have had resolution in symptoms since scheduling you a medication called meclizine. You should continue this medication 2-3 times a day for the next 1-2 days then can utilize as needed. You were evaluated by therapy and we are arranging for prescription for outpatient physical therapy. You should follow up with primary care in the next 7-10 days after discharge to monitor your progress. Please return to the ER with any worsening symptoms, nausea/vomiting, or for any other symptoms concerning for you. It has been a pleasure being a part of the medical team providing for you while you have been in the hospital. Take care! Pending Studies at Discharge: No Stand-Alone Forms: [facility], Smoking Cessation Medications and DC Order Prescriptions: New meclizine 25 mg Tablet 25 mg PO TID Qty: 30 0RF Continued citalopram 40 mg tablet 40 mg PO DAILY Qty: 90 3RF amlodipine 10 mg tablet 10 mg PO DAILY Qty: 90 3RF lisinopril 40 mg tablet 80 mg PO DAILY Qty: 180 3RF clopidogrel 75 mg tablet 75 mg PO DAILY Qty: 90 3RF pantoprazole [Protonix] 40 mg tablet,delayed release (DR/EC) 40 mg PO DAILY Qty: 90 3RF pravastatin 10 mg tablet 10 mg PO DAILY Qty: 90 3RF diphenhydramine-acetaminophen [Tylenol PM Extra Strength] 25-500 mg tablet 1 tab PO HS cetirizine [Zyrtec] 10 mg tablet 10 mg PO DAILY PRN (Reason: Allergic Symptoms) cholecalciferol (vitamin D3) 25 mcg (1,000 unit) capsule 25 mcg PO DAILY fluticasone propionate 50 mcg/actuation spray,suspension 2 sprays intranasal DAILY PRN (Reason: Allergic Symptoms) Caltrate 600 plus D 600 mg (1,500 mg)-800 unit tablet,chewable 1 tab PO DAILY Vaniqa 13.9 % cream 1 applic topical BID PRN (Reason: Skin Irritation) Rx Instructions: space doses >= 8 hrs apart Discharge Orders: Discharge Order (Routine); Ordered 03/24/23 Ordered By: Cindy Silva/Other Patient Handouts: Vertigo Staying Safe, ED Vertigo, Unspecified Admission Data Admit Date/Time: 03/23/23 21:14 Attending Provider: Jes Boucher Admit Provider: Ashanti Castro Primary Care Provider: Edilma Phillips Other Providers: Ashanti Castro Other Interventions: Discharge Summary Assessment (RN) Last Done: 03/24/23 10:26 Supervising Physician Co-Signing Physician Notes PA Supervision Note: I did not personally see or examine the patient today as she left before I could see her, but I verified all morton points of JAROD Goode's assessment and plan with the following exceptions/additions: None Coding Level of Care Code 87960 INP/OBS DISCH >30 MIN Diagnoses Vertigo R42 Obstructive sleep apnea G47.33 Hypertension I10 Acid reflux K21.9 Hyperlipidemia E78.5
--- NOTE | 2023-03-24 11:16 | Electrocardiogram Report ---
Test Reason : Blood Pressure : / mmHG Vent. Rate : 066 BPM Atrial Rate : 066 BPM P-R Int : 160 ms QRS Dur : 076 ms QT Int : 440 ms P-R-T Axes : 069 001 048 degrees QTc Int : 461 ms Normal sinus rhythm Normal ECG When compared with ECG of 30-NOV-2020 12:11, Minimal criteria for Anterior infarct are no longer Present Confirmed by John Ag ([id number]) on 03/24/2023 11:16:11 AM Referred By: REFERRED SELF Confirmed By:John Ag
[2023-03-24] MEDS ORDERED: PRAVASTATIN SOD 10 MG TAB PO SCH (21:00)
== END 2023-03-24 12:20 | disposition home or self-care (01) ==
LOC: 3N 18:18 → ED 18:18 → SUATTDRO 21:14 → 3N 22:30